=== PATIENT | female | born 1935 | race Caucasian/White ===

== ENCOUNTER → 2017-02-12 | Outpatient (CLI) | payer MEDICARE, BC ==
[~2017-02-12] MED LIST: ACTOS PO; ADVAIR 250-501 EACH IH; ADVAIR 2501 DISK W/D PO; ALBUTEROL17 GM INH; ASPIRIN81 M1 PO; DIABETA5 M1 PO; DICLOFENAC PO; GENTLE LAXATIVE10 MG PR; GLYBURIDE PO; HCTZ PO; HYDRALAZINE HCL50 MG PO; HYDROCODON-ACE1 EAC7 PO; HYDROCODON-ACE1 EAC9 PO; LANTUS100 UNITS/ SUBQ; LASIX PO; LISINOPRIL PO; LISINOPRIL20 MG PO; LOPRESSOR PO; LOVENOX40 MG/0.4 INJ; METOPROLOL TAR25 MG PO; MICRONASE5 M1 PO; MILK OF MAGNESIA PO; MINIPRESS PO; NOVOLIN R100 UNITS/ SUBQ; NOVOLOG100 U/ML SUBQ; PREDNISONE10 MG/DOSE PO; PROAIR; PROTONIX PO; PROVENTIL17 GM; SENNA-S TABLE1 UDTAB PO; SYMBICORT; TYLENOL325 M1 PO; ZESTRIL40 MG PO
--- NOTE | ~2017-02-12 | CR126 ---
[facility] A Service of [facility] RADIOLOGY TEXT RESULTS PATIENT: JOE DOWELL LOCATION: [facility] : 31 UNIT #: [id number] AGE: [address]: Yvonne Arguelles MERCURY PURIFIER SEX: F ORDER DR: [id number] [place] [id number] O MR#: [id number] Acc #: [id number] NAME: JOE DOWELL : 1935 SEX: F STUDY DATE/TIME: 02/12/2017 15:11 UNIT: SRA ROOM: STUDY DESCRIPTION: CR Foot Complete Min 3 View Lt Attending Physician: Yvonne Arguelles A.P.R.N. Referring Physician: Yvonne Arguelles A.P.R.N. Ordering Physician: Staff Doctor Not On Primary Care Physician: Beckie Small M.D. MEDICAL IMAGING REPORT This report is preliminary unless electronic signature is present. EXAM Left foot, 3 views. DATE OF EXAM 02/12/2017 HISTORY SUPPLIED Fall last night with foot pain. FINDINGS 3 views are submitted. There is generalized osteopenia. Bony elements and alignment appear normal. No definite fracture is identified. CONCLUSION Marked osteopenia with no fracture seen. Dictated by... Tj Chen M.D. THIS IS AN ELECTRONICALLY VERIFIED REPORT Tj Chen M.D. at 02/13/2017 10:56 AM LISA/thais TD: 02/12/2017 19:59 JOB #: [id number] MEDICAL IMAGING REPORT Page 1 of 1
== END | disposition home or self-care (01) ==
LOC: SRAD 14:59
DX: M79.672 Pain in left foot (principal); M85.862 Other specified disorders of bone density and structure, left lower leg
CPT/HCPCS: 73630